=== PATIENT | male | born 1955 | race Hispanic/Latino ===

== ENCOUNTER 2023-07-05 18:03 | Emergency (ER) | payer OTHER, MEDICARE ==
[2023-07-05] MEDS ORDERED: Boostrix 0.5 ML (Tdap) VIAL (>/=7 yrs of age) ONE (19:29)
[2023-07-05] MEDS ORDERED: Acetaminophen 500 MG TAB ONE (20:12)
[2023-07-05] MEDS ORDERED: HYDROcodone/Acetaminophen 5/325 mg Tablet ONE (22:13)
[2023-07-05] MEDS ORDERED: traMADol HCl 50 MG TAB ONE (22:19)
== END 2023-07-05 23:00 | disposition home or self-care (01) ==
LOC: ERS 18:03
DX: S20.214A Contusion of middle front wall of thorax, initial encounter (principal); V89.2XXA Person injured in unspecified motor-vehicle accident, traffic, initial encounter; Z23 Encounter for immunization
CPT/HCPCS: 71045; 90471; 90715; 93005